=== PATIENT | female | born 1955 | race American Indian/Alaskan Native ===

== ENCOUNTER → 2016-08-04 | Outpatient (CLI) | payer MEDICARE ==
--- NOTE | 2016-08-04 07:40 | XR ---
EXAMINATION TYPE: XR chest 2V DATE OF EXAM: 08/04/2016 7:34 AM COMPARISON: 08/02/2015 HISTORY: 61-year-old female follow-up breast cancer TECHNIQUE: Frontal and lateral views FINDINGS: Redemonstrated surgical clips at the left breast. The cardiomediastinal silhouette, aorta, and pulmon felip[place] vasculature are within normal limits. Mild interstitial prominence unchanged likely chronic. Othe rwise, lungs and pleural spaces are clear. IMPRESSION: Stable exam without acute cardiopulmonary process.
--- NOTE | 2016-08-05 09:04 | MM ---
Reason for exam: screening (asymptomatic). Last mammogram was performed 1 year ago. History: Patient is postmenopausal, has history of breast cancer at age 52, had previous chest radiation therapy at age 52, and had first child at age 29. Malignant US left guided mammotome of the left breast, July 30, 2007. Lumpectomy of the left breast, 2007. Chemotherapy, 2007. Radiation therapy of the left breast, 2007. Took antineoplastic for 5 years beginning at age 52. Taking other hormone for 6 years beginning at age 52. Physical Findings: A clinical breast exam by your physician is recommended on an annual basis and results should be correlated with mammographic findings. MG Screening Mammo w CAD Bilateral CC and MLO view(s) were taken. Prior study comparison: August 02, 2015, bilateral MG 3d diag mammo w/cad [place]. July 12, 2014, bilateral MG diagnostic mammo w CAD [place]. The breast tissue is heterogeneously dense. This may lower the sensitivity of mammography. Finding #1: Architectural distortion in the left breast. Finding #2: There are typically benign calcifications in both breasts. No significant changes in finding since August 02, 2015 and July 12, 2014. ASSESSMENT: Benign, BI-RAD 2 RECOMMENDATION: Routine screening mammogram of both breasts in 1 year.
== END | disposition home or self-care (01) ==
LOC: RADMAMWWP 07:07
PROVIDERS: ATTEND Internal Medicine Hematology & Oncology
DX: Z12.31 Encounter for screening mammogram for malignant neoplasm of breast (principal); C50.412 Malignant neoplasm of upper-outer quadrant of left female breast; E78.5 Hyperlipidemia, unspecified; M81.8 Other osteoporosis without current pathological fracture; Z80.3 Family history of malignant neoplasm of breast; Z17.0 Estrogen receptor positive status [ER+]
CPT/HCPCS: 71020; G0202

== ENCOUNTER → 2016-09-23 | Outpatient (CLI) | payer MEDICARE ==
--- NOTE | 2016-09-23 16:52 | WWHP ---
CHIEF COMPLAINT: The patient is here for her routine gynecologic exam. HPI: This is a 61-year-old, G2, P2 with an LMP of 1998. The patient is without gynecologic complaints. She had a mammogram on 08/04/2016, which was benign. PAST MEDICAL HISTORY: Left breast cancer diagnosed in 2007 and she is status post lumpectomy and radiation and chemotherapy. Also history of elevated cholesterol and osteoporosis. She did use Prolia for about 1-1/2 years and that was discontinued. MEDICATIONS: 1. Simvastatin 25 mg daily. 2. Vitamin D 2000 units daily. 3. Calcium 600 mg b.i.d. 4. Multivitamin daily. ALLERGIES: No known drug allergies. PAST SURGICAL HISTORY: Left breast lumpectomy in 2007. Right breast reconstructive surgery 2015, colonoscopy in 2011. She has had several colonoscopies in the past. 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 SOCIAL HISTORY: She denies tobacco and drug use and has about 0 to 1 alcoholic drink per week. She has been since 1983 and does not work outside the home. REVIEW OF SYSTEMS: Weight has been stable. She denies respiratory, cardiac, or GI problems. PHYSICAL EXAM: Blood pressure 114/80. Height 5 feet 2 inches. Weight 156 pounds. Temperature 97.6, pulse 71. This a well-developed, well-nourished female who is alert and oriented x3 in no acute distress. HEENT is within normal limits. NECK: Supple without mass or thyromegaly. CHEST AND LUNGS: Clear to auscultation. HEART: Regular rate and rhythm. Breasts reveal inverted area of the left breast that in the lateral aspect of the left breast consistent with her previous lumpectomy. The nipple has a linear inversion which she states has been that way since her surgery and radiation. The right breast is consistent with a previous right breast reconstruction, there are no palpable breast masses or discharge noted. Axillary exam is negative adenopathy. BACK: Negative for CVA tenderness. ABDOMEN: Soft, nontender, without palpable masses. PELVIC EXAM: External genitalia reveals mild to moderate atrophy without lesions. Cervix and vagina reveal mild atrophy without lesions. There is no evidence of prolapse. The uterus is midposition, nongravid size and nontender. There are no palpable adnexal masses or tenderness. Rectovaginal exam is negative for mass or tenderness and is negative for occult blood. EXTREMITIES: Nontender. IMPRESSION: 1. A 61-year-old menopausal female with normal gynecologic exam. 2. History of left breast cancer with no evidence of recurrence. 3. History of osteoporosis, status post Prolia use for 1-1/2 years and this was discontinued for an unknown reason. PLAN: 1. Pap smear was performed. 2. Self breast examination was discussed. 3. Mammograms will be done through Dr. Arevalo as she has done in the past. 4. Osteoporosis management was discussed. We will plan on repeating a bone density since it has been more than a year since her last one. We will consider medications such as Prolia after reviewing the upcoming bone density test. 5. She will return in one year.
== END | disposition home or self-care (01) ==
LOC: WWCWWP 07:59
PROVIDERS: ATTEND Obstetrics & Gynecology

== ENCOUNTER → 2017-09-09 | Outpatient (CLI) | payer MEDICARE ==
--- NOTE | 2017-09-09 14:31 | BD ---
EXAMINATION TYPE: MG DEXA axial skeleton. DATE OF EXAM: 09/09/2017 COMPARISON: NONE CLINICAL HISTORY: Height: Weight: FRAX RISK QUESTIONS: Alcohol (3 or more units per day): NO Family History (Parent hip fracture): NO Glucocorticoids (More than 3mos): NO (Ex: prednisone, prednisolone, methylprednisolone, dexamethasone, and hydrocortisone). History of Fracture in Adulthood: NO Secondary Osteoporosis: 1. Type 1 Diabetes: NO 2. Hyperthyroidism: NO 3. Menopause before 45: NO 4. Malnutrition: NO 5. Chronic liver disease: NO Rheumatoid Arthritis: NO Current Tobacco Use: NO RISK FACTORS HISTORY OF: Active: YES Postmenopausal woman: AGE 45 MEDICATIONS: Additional Medications: CALCIUM,VIT D Additional History: WAS ON CHOLESTEROL MEDS 4-5 YRS /OFF 6 MONTHS EXAM MEASUREMENTS: Bone mineral densitometry was performed using the [employer] System. Bone mineral density as measured about the Lumbar spine is: ----- L1-L4(G/cm2): 0.927 T Score Values are as follows: ----- L2: -3.6 ----- L3: -2.6 ----- L4: 0.0 ----- L1-L4: -2.1 Bone mineral density has: DECREASED -3.2 % since study of: 2015 Bone mineral density about the R hip (g/cm2): 0.967 Bone mineral density about the L hip (g/cm2): 1.000 T Score values are as follows: -----R Neck: -0.5 -----L Neck: -0.3 -----R Total: -0.6 -----L Total: -0.8 Bone mineral density has: 0 CHANGE % since study of: 2015 IMPRESSION: Osteoporosis (T Score less than -2.5). There is increased fracture risk and therapy is usually indicated based on age. Re-Screen 1-2 years. NOTE: T-SCORE=SD OF THE YOUNG ADULT MEAN.
--- NOTE | 2017-09-10 11:14 | MM ---
Reason for exam: screening (asymptomatic). Last mammogram was performed 1 year and 1 month ago. History: Patient is postmenopausal, has history of breast cancer at age 52, had previous chest radiation therapy at age 52, and had first child at age 29. Malignant US left guided mammotome of the left breast, July 30, 2007. Lumpectomy of the left breast, 2007. Chemotherapy, 2007. Radiation therapy of the left breast, 2007. Took antineoplastic for 5 years beginning at age 52. Taking other hormone for 6 years beginning at age 52. Physical Findings: A clinical breast exam by your physician is recommended on an annual basis and results should be correlated with mammographic findings. MG 3D Screening Mammo W/Cad Bilateral CC and MLO view(s) were taken. Prior study comparison: August 04, 2016, bilateral MG screening mammo w CAD. August 02, 2015, bilateral MG 3d diag mammo w/cad [place]. July 12, 2014, bilateral MG diagnostic mammo w CAD [place]. The breast tissue is heterogeneously dense. This may lower the sensitivity of mammography. No significant changes when compared with prior studies. ASSESSMENT: Benign, BI-RAD 2 RECOMMENDATION: Routine screening mammogram of both breasts in 1 year.
== END ==
LOC: RADMAMWWP 09:08
PROVIDERS: ATTEND Internal Medicine Hematology & Oncology
DX: C50.412 Malignant neoplasm of upper-outer quadrant of left female breast (principal); M81.0 Age-related osteoporosis without current pathological fracture
CPT/HCPCS: 77063; 77067; 77080

== ENCOUNTER → 2017-10-28 | Outpatient (CLI) | payer MEDICARE ==
[2017-10-28 09:30] VITALS: BP 114/72; TEMP 97.4; BMI 29.8
--- NOTE | 2017-10-28 10:22 | P.HPOB ---
History of Present Illness H&P Date: 10/28/17 Chief Complaint: The patient is here for her routine gynecologic exam. This is a 62-year-old with an LMP of 1998. The patient is without gynecologic complaints. Patient had her mammogram and bone density test done last month. Review of Systems The patient has gained 7 pounds over the last year. She denies respiratory, cardiac, or G.I. problems. Past Medical History Past Medical History: Cancer (Left breast cancer in 2007 she is status post lumpectomy, radiation and chemotherapy.), Hyperlipidemia, Sleep Apnea/CPAP/BIPAP Additional Past Medical History / Comment(s): History of osteoporosis. She used Fosamax for 5 years and Prolia for 1 1/2 years. History of Any Multi-Drug Resistant Organisms: None Reported Past Surgical History: Breast Surgery Additional Past Surgical History / Comment(s): lumpectomy lt breast, reconstructive surgery rt breast. Colonoscopy 2011 and 2016. Past Anesthesia/Blood Transfusion Reactions: No Reported Reaction Past Psychological History: No Psychological Hx Reported Smoking Status: Never smoker Past Alcohol Use History: Occasional (1 per month) Past Drug Use History: None Reported Additional History: She has been since 1983 and does not work outside the home. - Past Family History Mother Family Medical History: Hyperlipidemia Additional Family Medical History / Comment(s): 2 cousins had colon cancer. Medications and Allergies Home Medications Medication Instructions Recorded Confirmed Type Calcium Carbonate [Calcium] 1,200 mg PO DAILY 09/24/16 10/28/17 History Cholecalciferol [Vitamin D3] 1,000 unit PO BID 09/24/16 10/28/17 History Simvastatin [Zocor] 0.25 mg PO HS 09/24/16 10/28/17 History Allergies Allergy/AdvReac Type Severity Reaction Status Date / Time No Known Allergies Allergy Verified 10/28/17 09:30 Exam - Vital Signs Vital signs: Vital Signs Temp BP 10/28/17 09:22 97.4 F L 114/72 Intake and Output 10/27/17 10/28/17 10/28/17 22:59 06:59 14:59 Other: Weight 73.936 kg Height 5'2", BMI 29.8. This is a well-developed well-nourished female who is alert and oriented times 3 in no acute distress. HEENT: Within normal limits. NECK: Supple without mass or thyromegaly. CHEST AND LUNGS: Clear to auscultation. HEART: Regular rate and rhythm. BREASTS: Are without mass or discharge. The left breast is consistent with previous lumpectomy with a inverted area at the lateral aspect of the breast. The right breast is consistent with previous reconstruction. AXILLARY EXAM: Negative for adenopathy. BACK: Negative for CVA tenderness. ABDOMEN: Soft, nontender, without palpable masses. PELVIC EXAM: Normal external genitalia with mild to moderate atrophy. Cervix and vagina appear normal of mild atrophy. There is no unusual discharge. There is no evidence of prolapse. The uterus is midposition, nongravid size and nontender. There are no palpable adnexal masses or tenderness. RECTAL EXAM: to vaginal exam is negative for mass or tenderness and is negative for occult blood. EXTREMITIES: Nontender. IMPRESSION: 1. 62-year-old menopausal female with normal gynecologic exam. 2. History of left breast cancer with no evidence of recurrence. 3. History of osteoporosis. She is status post 5 years use of Fosamax and probably a for one and half years in the past. PLAN: 1. Pap smear was deferred since she had a normal one last year. 2. Self breast awareness was discussed. 3. Mammogram was done in 09/09/2017 and was benign. She will repeat this in one year. 4. Osteoporosis management was discussed. Her bone density from 09/09/2017 was reviewed. Findings were relatively stable with focal osteoporosis in L2 and L3. Because of her five-year use of bisphosphonates we will continue without medications at this time. I have stressed the importance of adequate calcium, vitamin D and regular exercise. We will repeat the bone density in 2 years. 5. She will return in one year.
== END | disposition home or self-care (01) ==
LOC: WWCWWP 09:08
PROVIDERS: ATTEND Obstetrics & Gynecology
DX: Z53.9 Procedure and treatment not carried out, unspecified reason (principal)

== ENCOUNTER → 2018-11-02 | Outpatient (CLI) | payer MEDICARE ==
--- NOTE | 2018-11-03 12:11 | MM ---
Reason for exam: screening (asymptomatic). Last mammogram was performed 1 year and 2 months ago. History: Patient is postmenopausal, has history of breast cancer at age 52, had previous chest radiation therapy at age 52, and had first child at age 29. Malignant US left guided mammotome of the left breast, July 30, 2007. Lumpectomy of the left breast, 2007. Chemotherapy, 2007. Radiation therapy of the left breast, 2007. Took antineoplastic for 5 years beginning at age 52. Taking other hormone for 6 years beginning at age 52. Physical Findings: A clinical breast exam by your physician is recommended on an annual basis and results should be correlated with mammographic findings. MG 3D Screening Mammo W/Cad Bilateral CC and MLO view(s) were taken. Prior study comparison: September 09, 2017, bilateral MG 3d screening mammo w/cad. August 04, 2016, bilateral MG screening mammo w CAD. The breast tissue is heterogeneously dense. This may lower the sensitivity of mammography. Finding: Architectural distortion in the left breast consistent with known lumpectomy changes. There is a chronic nodularity in the right breast. There is no discrete abnormality. ASSESSMENT: Benign, BI-RAD 2 RECOMMENDATION: Follow-up diagnostic mammogram of both breasts in 1 year.
== END | disposition home or self-care (01) ==
LOC: RADMAMWWP 07:21
PROVIDERS: ATTEND Internal Medicine Hematology & Oncology
DX: Z12.31 Encounter for screening mammogram for malignant neoplasm of breast (principal)
CPT/HCPCS: 77063; 77067

== ENCOUNTER → 2018-12-22 | Outpatient (CLI) | payer MEDICARE ==
[2018-12-22 08:01] VITALS: BP 109/74; PULSE 71; RESP 18; TEMP 98; BMI 29.8
--- NOTE | 2018-12-22 08:56 | P.HPOB ---
History of Present Illness H&P Date: 12/22/18 Chief Complaint: The patient is here for her routine gynecological exam. This is a 63-year-old with an LMP of 1998. The patient is complaining of vaginal dryness not associated with sexual activity. She states the vagina can feel dry at times and this can be uncomfortable. She is otherwise without complaints and denies any postmenopausal bleeding. Review of Systems Weight has been stable. She denies respiratory, cardiac and G.I. problems. She denies maltreatment or problems with falling. : she denies any significant problems with urinary leakage. Past Medical History Past Medical History: Cancer, Hyperlipidemia, Sleep Apnea/CPAP/BIPAP Additional Past Medical History / Comment(s): Left breast cancer status post lumpectomy, chemotherapy, and radiation therapy in 2007. History of osteoporosis. She used Fosamax for 5 years and Prolia for 1 1/2 years. 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 History of Any Multi-Drug Resistant Organisms: None Reported Past Surgical History: Breast Surgery Additional Past Surgical History / Comment(s): lumpectomy lt breast, reconstructive surgery rt breast. Colonoscopy 2017(multiple previous, next after 5 yrs). Past Anesthesia/Blood Transfusion Reactions: No Reported Reaction Past Psychological History: No Psychological Hx Reported Smoking Status: Never smoker Past Alcohol Use History: Occasional (One or 2 per month) Past Drug Use History: None Reported Additional History: She has been since 1983 and is sexually active. She does not work outside the home. - Past Family History Mother Family Medical History: Hyperlipidemia Additional Family Medical History / Comment(s): 2 cousins had colon cancer. Father Family Medical History: Hyperlipidemia Medications and Allergies Home Medications Medication Instructions Recorded Confirmed Type Cholecalciferol [Vitamin D3] 1,000 unit PO BID 09/24/16 12/22/18 History Simvastatin [Zocor] 0.25 mg PO HS 09/24/16 12/22/18 History Allergies Allergy/AdvReac Type Severity Reaction Status Date / Time No Known Allergies Allergy Verified 12/22/18 08:01 Exam Vital Signs Temp Pulse Resp BP Pulse Ox 12/22/18 07:54 98.0 F 71 18 109/74 95 Intake and Output 12/21/18 12/22/18 12/22/18 22:59 06:59 14:59 Other: Weight 73.936 kg Height 5'2", weight 163 pounds, BMI 29.8. This is a well-developed well-nourished female who is alert and oriented times 3 in no acute distress. HEENT: Within normal limits. NECK: Supple without mass or thyromegaly. CHEST AND LUNGS: Clear to auscultation. HEART: Regular rate and rhythm. BREASTS: Are without mass or discharge. The left breast has a puckered area near the 3 o'clock position of the areola with an inverted left nipple consistent with her previous lumpectomy. The right breast is consistent with breast reconstruction. AXILLARY EXAM: Negative for adenopathy. BACK: Negative for CVA tenderness. ABDOMEN: Soft, nontender, without palpable masses. PELVIC EXAM: Normal external genitalia with mild atrophy. Cervix and vagina appear normal with mild atrophy. There is no unusual discharge. There is no evidence of prolapse. The uterus is midposition, nongravid size and nontender. There are no palpable adnexal masses or tenderness. RECTAL EXAM: rectovaginal exam is negative for mass or tenderness and is negative for occult blood. EXTREMITIES: Nontender. IMPRESSION: 1. 63-year-old menopausal female with normal gynecologic exam. 2. Subjective feeling of vaginal dryness secondary to atrophy. 3. History of left breast cancer with no evidence of recurrence. 4. History of osteopenia status post 5 years of Fosamax and one half years of pearly in the past. PLAN: 1. Pap smear was performed. If this is negative, we will consider discontinuing Pap smears since she has had no history of cervical problems, she has been adequately screened, and she will be in greater than 63 years of age. 2. Self breast awareness was discussed with the patient. 3. Mammogram was done on 11/02/2018 and was benign. She will continue to do these yearly. 4. Osteoporosis management was discussed. I have stressed the importance of adequate calcium, vitamin D and regular exercise. Recommended amounts of calcium and vitamin D were also discussed. Because she is completed 5 years use of Fosamax and one and a half years of Prolia, we will continue to go without prescription medication. We will plan on repeating the bone density test in 2020 since her last one was done on 09/09/2017. If this remains fairly stable, we will continue without prescription medication. 5. She does get flu shots in the fall. 6. Because of her history of breast cancer, she is not a candidate for vaginal estrogen use. I have recommended that she try a vaginal moisturizer. I have given her 2 names of vaginal moisturizers that are available [id number]. She will use one of these as directed. 7.She was advised to return in one year for her annual well woman exam.
== END | disposition home or self-care (01) ==
LOC: WWCWWP 07:45
PROVIDERS: ATTEND Obstetrics & Gynecology
DX: Z53.9 Procedure and treatment not carried out, unspecified reason (principal)

== ENCOUNTER → 2019-01-20 | Outpatient (CLI) | payer MEDICARE ==
--- NOTE | 2019-01-20 12:56 | CONS ---
CONSULTATION DATE OF SERVICE: 01/20/2019 A 64-year-old lady who has been re-evaluated in the [facility] for obstructive sleep apnea-hypopnea syndrome. HISTORY OF PRESENT ILLNESS/SLEEP-WAKE EVALUATION: Patient had been diagnosed with obstructive sleep apnea in 2011. She continues to use her CPAP equipment but developed dryness in the mouth while using machine. Because of that, patient was not able to use machine for a while. His sleep schedule from 10 p.m. to 7 a.m. Sometimes she has problem with falling asleep. No TV in bedroom. She sleeps on the stomach position. She wakes up from sleep 2 times with nocturia and loud snoring. During the day, she has problems with memory, worry about her sleep. [place] Sleepiness Scale is 7. PAST MEDICAL HISTORY: Positive for left breast CA and hyperlipidemia. PAST SURGICAL HISTORY: Lumpectomy from the left breast and following radiation therapy and chemotherapy. MEDICATIONS: Simvastatin, vitamin D. REVIEW OF SYSTEMS: Loud snoring, multiple awakenings from sleep. FAMILY HISTORY: Diabetes mellitus, arthritis, heart problems, hypertension. SOCIAL HISTORY: Negative for smoking. Alcohol consumption occasional. PHYSICAL EXAM: A 64-year-old lady without distress. BP 117/61, HR 67, RR 14, height 5.2, weight 163.8, temperature 98.2, oxygen saturation at room air 95%. OROPHARYNX: Extremely low soft palate, Mallampati 4. Neck Supple, no JVD. Thyroid is not palpable. LUNGS Clear to percussion and to auscultation. Good air exchange. No wheezing or rhonchi. HEART S1, S2 regular. No murmurs, gallops, or rubs. ABDOMEN Soft and nontender. Bowel sounds are present. No organomegaly appreciated. EXTREMITIES No clubbing or cyanosis. 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 Cranial nerves 2 to 7 intact. There is no fasciculation or atrophy. noted. No focal deficits observed. IMPRESSION: 1. Loud snoring, awakenings from sleep with nocturia, extremely low position of soft palate, obstructive sleep apnea-hypopnea syndrome. 2. Overweight, close to obesity, body mass index 29.9. 3. Hyperlipidemia. 4. History of breast carcinoma, status post lumpectomy, radiation therapy and chemotherapy. 5. History of obstructive sleep apnea diagnosed in 2011, but patient was not able to use CPAP therapy for more than one year. PLAN: 1. Polysomnography for evaluation of patient's breathing during sleep. 2. CPAP/BiPAP titration if sleep study confirms obstructive sleep apnea-hypopnea syndrome. 3. Preferable position during sleep on the side. 4. No driving if patient feels any sleepiness. 5. I will see patient for follow up visit to explain results of testing and following plan. Thank you very much for referring this patient for consultation. Sincerely, Bryan Shah MD, PhD, FAASM Diplomat of [employer] [facility] [place] MMODL / IJN: [id number] /
== END | disposition home or self-care (01) ==
LOC: SLEEP 11:24
PROVIDERS: ATTEND Internal Medicine
DX: G47.33 Obstructive sleep apnea (adult) (pediatric) (principal); E66.3 Overweight; E78.5 Hyperlipidemia, unspecified; Z68.29 Body mass index [BMI] 29.0-29.9, adult; Z85.3 Personal history of malignant neoplasm of breast; Z92.21 Personal history of antineoplastic chemotherapy; Z92.3 Personal history of irradiation; Z98.890 Other specified postprocedural states
CPT/HCPCS: 99211

== ENCOUNTER → 2019-08-18 | Outpatient (CLI) | payer MEDICARE ==
--- NOTE | 2019-08-18 11:51 | PN ---
PROGRESS NOTE DATE OF SERVICE: 08/18/2019 A 64-year-old lady who has been followed in the [facility] for treatment of obstructive sleep apnea-hypopnea syndrome. Several months ago, patient had a home sleep apnea test which showed apnea-hypopnea index 16.5 with oxygen desaturation to 80%. After that, patient had CPAP titration and subsequently received a CPAP unit. I discussed results of sleep studies with patient in detail. Patient is able to use her CPAP equipment practically every night. She only mentioned that she sometimes opens her mouth and that may move her mask on the side. She is using full-face, under the nose Dream Wear mask. She feels better while she is using CPAP. Sleeps better and feels better during the day. [place] Sleepiness Scale today is 6. I checked CPAP unit, range of the pressure 5-15 with average pressure 13.6 cm of water. Usage is 27/30 nights, 26/30 nights more than 4 hours with average usage is 6.4 hours per night. Leak is 60 L/minute which is borderline. Apnea-hypopnea index reading 3.8, which is in normal range. MEDICATIONS: Simvastatin, vitamin D. PHYSICAL EXAM: Patient in no distress, BP 114/70, HR 66, RR 14, weight 159.8, temperature 97.9, O2 saturation at room air 97%. OROPHARYNX: Extremely low position of soft palate. Mallampati 4. NECK: Supple, no JVD. Thyroid is not palpable. LUNGS: Clear to percussion and to auscultation. Good air exchange. No wheezing or rhonchi. HEART: S1, S2 regular. No murmurs, gallops, or rubs. ABDOMEN: Soft and nontender. Bowel sounds are present. No organomegaly appreciated. EXTREMITIES: No clubbing or cyanosis. CHANGE CONTROL ANALYST: Awake, alert, and oriented X3. Cranial nerves 2 to 7 intact. There is no fasciculation or atrophy. noted. No focal deficits observed. IMPRESSION: 1. Moderate obstructive sleep apnea-hypopnea syndrome on full control with CPAP. Patient demonstrated great compliance with treatment, benefitting from treatment. 2. Hyperlipidemia. 3. History of breast CA, status post lumpectomy and radiation therapy. PLAN: 1. Patient will continue to use CPAP equipment every night for the whole night. 2. Watching weight. 3. Prescription for chin strap. 4. I will maintain all necessary prescriptions for CPAP supplies including mask, tube, filters. Thank you very much for allowing me to participate in management of your patient. Sincerely, Bryan Shah MD, PhD, FAASM Diplomat of [place] [employer] [place] [employer] Forestry Support Specialist [facility] [place] MMODL / [place]: [id number] /
== END | disposition home or self-care (01) ==
LOC: SLEEP 09:55
PROVIDERS: ATTEND Internal Medicine
DX: G47.33 Obstructive sleep apnea (adult) (pediatric) (principal); E78.5 Hyperlipidemia, unspecified; Z85.3 Personal history of malignant neoplasm of breast; Z90.10 Acquired absence of unspecified breast and nipple; Z51.0 Encounter for antineoplastic radiation therapy; Z79.899 Other long term (current) drug therapy

== ENCOUNTER → 2020-01-05 | Outpatient (CLI) | payer MEDICARE ==
--- NOTE | 2020-01-05 11:05 | MM ---
Reason for exam: additional evaluation requested from prior study. Last mammogram was performed 1 year and 2 months ago. History: Patient is postmenopausal, has history of breast cancer at age 52, had previous chest radiation therapy at age 52, and had first child at age 29. Malignant US left guided mammotome of the left breast, July 30, 2007. Lumpectomy of the left breast, 2007. Chemotherapy, 2007. Radiation therapy of the left breast, 2007. Took antineoplastic for 5 years beginning at age 52. Taking other hormone for 6 years beginning at age 52. Physical Findings: Nurse did not find any significant physical abnormalities on exam. MG 3D Diag Mammo W/Cad [place] Bilateral CC and MLO view(s) were taken. Prior study comparison: November 02, 2018, bilateral MG 3d screening mammo w/cad. September 09, 2017, bilateral MG 3d screening mammo w/cad. The breast tissue is heterogeneously dense. This may lower the sensitivity of mammography. There is chronic nodularity in the right breast. Post surgical and post therapy changes left breast. No significant new findings when compared with previous films. These results were verbally communicated with the patient and result sheet given to the patient on 01/05/20. ASSESSMENT: Benign, BI-RAD 2 RECOMMENDATION: Follow-up diagnostic mammogram of both breasts in 1 year.
--- NOTE | 2020-01-05 17:20 | XR ---
EXAMINATION TYPE: XR chest 2V DATE OF EXAM: 01/05/2020 COMPARISON: 08/04/2016 HISTORY: Shortness of breath TECHNIQUE: Frontal and lateral views of the chest are obtained. FINDINGS: Scattered senescent parenchymal changes noted. Hyperinflation compatible with COPD. No evidence for infiltrate. No evidence for atelectasis. Heart size is stable. Mediastinal structures are stable and grossly unremarkable. No evidence for hilar prominence. Degenerative changes dorsal spine. IMPRESSION: 1. No evidence for acute pulmonary disease.
== END | disposition home or self-care (01) ==
LOC: RADMAMWWP 10:02
PROVIDERS: ATTEND Internal Medicine Hematology & Oncology
DX: C50.412 Malignant neoplasm of upper-outer quadrant of left female breast (principal); E78.5 Hyperlipidemia, unspecified; M81.8 Other osteoporosis without current pathological fracture; Z17.0 Estrogen receptor positive status [ER+]
CPT/HCPCS: 71046; 77066; G0279; 77062

== ENCOUNTER → 2020-01-10 | Outpatient (CLI) | payer MEDICARE ==
[2020-01-10 10:12] VITALS: BP 127/75; PULSE 79; RESP 18; TEMP 98.4
--- NOTE | 2020-01-10 11:03 | P.HPOB ---
History of Present Illness H&P Date: 01/10/20 Chief Complaint: The patient is here for her routine gynecologic exam. This is a 65-year-old with an LMP of 1998. The patient is without gynecologic complaints. The patient denies any postmenopausal bleeding. The patient has a history of osteoporosis and is status post 5 years use of Fosamax and Prolene use for 1-1/2 years. Review of Systems She has lost about 5 pounds over the past year. She denies respiratory, cardiac and G.I. problems. She denies maltreatment or problems with falling. : she denies any significant problems with urinary leakage. Past Medical History Past Medical History: Cancer, Hyperlipidemia, Sleep Apnea/CPAP/BIPAP Additional Past Medical History / Comment(s): Left breast cancer status post lumpectomy, chemotherapy, and radiation therapy in 2007. History of osteoporosis. She used Fosamax for 5 years and Prolia for 1 1/2 years. 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 History of Any Multi-Drug Resistant Organisms: None Reported Past Surgical History: Breast Surgery Additional Past Surgical History / Comment(s): lumpectomy lt breast, reconstructive surgery rt breast. Colonoscopy 2017(multiple previous, next after 5 yrs). Past Anesthesia/Blood Transfusion Reactions: No Reported Reaction Past Psychological History: No Psychological Hx Reported Smoking Status: Never smoker Past Alcohol Use History: Occasional (2 per week) Past Drug Use History: None Reported Additional History: She has been since 1983 and is sexually active. She does not work outside of the home. - Past Family History Mother Family Medical History: Hyperlipidemia Additional Family Medical History / Comment(s): 2 cousins had colon cancer. Father Family Medical History: Hyperlipidemia Medications and Allergies Home Medications Medication Instructions Recorded Confirmed Type Cholecalciferol [Vitamin D3] 1,000 unit PO BID 09/24/16 01/10/20 History Simvastatin [Zocor] 0.25 mg PO HS 09/24/16 01/10/20 History Allergies Allergy/AdvReac Type Severity Reaction Status Date / Time No Known Allergies Allergy Verified 01/10/20 10:07 Exam Vital Signs Temp Pulse Resp BP Pulse Ox 01/10/20 10:08 98.4 F 79 18 127/75 99 Intake and Output 07/06/20 07/07/20 07/07/20 22:59 06:59 14:59 Other: Weight 71.668 kg Height 5 feet 2-1/2 inches, weight 158 pounds, BMI 28.4. This is a well-developed well-nourished female who is alert and oriented times 3 in no acute distress. HEENT: Within normal limits. NECK: Supple without mass or thyromegaly. CHEST AND LUNGS: Clear to auscultation. HEART: Regular rate and rhythm. BREASTS: Are without mass or discharge. The left breast has a puckered area near the 3 o'clock position involving the areola which is consistent with her previous lumpectomy and is unchanged from her previous exam. AXILLARY EXAM: Negative for adenopathy. BACK: Negative for CVA tenderness. ABDOMEN: Soft, nontender, without palpable masses. PELVIC EXAM: Normal external genitalia with mild atrophy. Cervix and vagina appear normal mild atrophy. There is no unusual discharge. There is no evidence of prolapse. The uterus is midposition, nongravid size and nontender. There are no palpable adnexal masses or tenderness. RECTAL EXAM: Rectovaginal exam is negative for mass or tenderness and is negative for occult blood. EXTREMITIES: Nontender. IMPRESSION: 1. 65-year-old menopausal female with normal gynecologic exam. 2. History of left breast cancer status post lumpectomy, chemotherapy and radiation therapy in 2007 with no evidence of recurrence. 3. History of osteoporosis status post 5 years use of Fosamax and 1-1/2 years use of Prolia. PLAN: 1. Pap smears have been discontinued based on her age and history. 2. Self breast awareness was discussed with the patient. 3. Diagnostic mammogram was done on 01/05/2020 and this was benign. She'll continue to do these yearly. 4. Osteoporosis management was discussed. I have stressed the importance of adequate calcium, vitamin D and regular exercise. Recommended amounts of calcium and vitamin D were also discussed. I have recommended repeating the bone density test since her last one was on 09/09/2017. She states she would like to do this next year at her next well woman examination. 5. She did receive her flu shot last fall. 6. She was advised to return in one year for her annual well woman exam.
== END | disposition home or self-care (01) ==
LOC: WWCWWP 09:27
PROVIDERS: ATTEND Obstetrics & Gynecology
DX: Z53.9 Procedure and treatment not carried out, unspecified reason (principal)

== ENCOUNTER → 2020-05-21 | Outpatient (CLI) | payer MEDICARE ==
[2020-05-21 16:06] LABS: Chol/HDL Ratio 2.64; LDL Cholesterol,Calculated 100.8 mg/dL (0.0-131.0); VLDL Calculation 17.2 mg/dL (5.00-40.00)
== END | disposition home or self-care (01) ==
LOC: LABWHC1 08:27
PROVIDERS: ATTEND Family Medicine
DX: E78.00 Pure hypercholesterolemia, unspecified (principal); M81.0 Age-related osteoporosis without current pathological fracture
CPT/HCPCS: 36415; 80061; 82306; 84450; 84460

== ENCOUNTER → 2020-12-07 | Day surgery (SDC) | payer MEDICARE ==
[2020-11-05 10:42] VITALS: BMI 30.2
[~2020-12-07] MED LIST: LACTATED RINGERS 1,000 ML IV SCH; LIDOCAINE 1% (10MG/ML) FOR IV START INTRADERMA PRN; LIDOCAINE 1% INJ 10MG/ML (20 ML MDV) ONE; PROPOFOL 10 MG/ML 20 ML VIAL IV ONE
[2020-12-07 09:45] VITALS: TEMP 98.6
--- NOTE | 2020-12-07 10:52 | P.PCN ---
Date of Procedure: 12/07/20 Procedure(s) Performed: BRIEF HISTORY: Patient is a 65-year-old pleasant 8 female scheduled for an elective colonoscopy as a part of evaluation of rectal bleeding and rectal pain for the last few weeks duration PROCEDURE PERFORMED: Colonoscopy with snare polypectomy. PREOPERATIVE DIAGNOSIS: Rectal bleeding and rectal pain. IV sedation per Anesthesia. PROCEDURE: After informed consent was obtained, the patient, was brought into the endoscopy unit. IV sedation was administered by Anesthesia under continuous monitoring. Digital rectal examination was normal. Initially the Olympus CF-160 flexible video colonoscope was then inserted in the rectum, gradually advanced into the cecum without any difficulty. Careful examination was performed as the scope was gradually being withdrawn. Ileocecal valve and the appendiceal orifice were visualized and appeared normal. Prep was excellent. Mucosa of the cecum, ascending colon, transverse colon, descending colon, sigmoid colon, and rectum appeared normal. Retroflexion was performed in the rectum and no lesions were seen. The patient tolerated the procedure well. IMPRESSION: 3 mm and 5 limited hepatic flexure polyp status post polypectomy 1 cm pedunculated rectosigmoid polyp status post polypectomy Scattered sigmoid diverticulosis. RECOMMENDATIONS: Findings of this examination were discussed with the patient as well as a family. She was advised to follow with the biopsy results. If the biopsy shows an adenoma she can have a repeat colonoscopy in 3 years.
[2020-12-07 11:12] VITALS: BP 118/59; PULSE 60; RESP 17
== END ==
LOC: ORWHC2ENDO 09:22
PROVIDERS: ATTEND Internal Medicine Gastroenterology
DX: K62.89 Other specified diseases of anus and rectum (principal); K57.90 Diverticulosis of intestine, part unspecified, without perforation or abscess without bleeding; E78.5 Hyperlipidemia, unspecified; Z79.899 Other long term (current) drug therapy; D12.7 Benign neoplasm of rectosigmoid junction; D12.3 Benign neoplasm of transverse colon
CPT/HCPCS: 88305; 45385; J2001; J2704

== ENCOUNTER → 2021-02-15 | Outpatient (CLI) | payer MEDICARE ==
--- NOTE | 2021-02-18 07:50 | MM ---
Reason for exam: additional evaluation requested from prior study. Last mammogram was performed 1 year and 1 month ago. History: Patient is postmenopausal, has history of breast cancer at age 52, had previous chest radiation therapy at age 52, and had first child at age 29. Breast lift of the right breast, 2010. Malignant US left guided mammotome of the left breast, July 30, 2007. Lumpectomy of the left breast, 2007. Chemotherapy, 2007. Radiation therapy of the left breast, 2007. Took antineoplastic for 5 years beginning at age 52. Taking other hormone for 6 years beginning at age 52. Physical Findings: Nurse did not find any significant physical abnormalities on exam. MG 3D Diag Mammo W/Cad [place] Bilateral CC and MLO view(s) were taken. Prior study comparison: January 05, 2020, bilateral MG 3d diag mammo w/cad [place]. November 02, 2018, bilateral MG 3d screening mammo w/cad. September 09, 2017, bilateral MG 3d screening mammo w/cad. August 04, 2016, bilateral MG screening mammo w CAD. The breast tissue is heterogeneously dense. This may lower the sensitivity of mammography. There is chronic nodularity in the right breast. Left lumpectomy changes, stable. No significant new findings when compared with previous films. These results were verbally communicated with the patient and result sheet given to the patient on 02/15/21. ASSESSMENT: Benign, BI-RAD 2 RECOMMENDATION: Routine screening mammogram of both breasts in 1 year.
== END | disposition home or self-care (01) ==
LOC: RADMAMWWP 14:26
PROVIDERS: ATTEND Internal Medicine Hematology & Oncology
DX: R92.2 Inconclusive mammogram (principal); Z78.0 Asymptomatic menopausal state; Z80.3 Family history of malignant neoplasm of breast
CPT/HCPCS: 77066; G0279; 77062

== ENCOUNTER → 2022-03-20 | Outpatient (CLI) | payer MEDICARE ==
--- NOTE | 2022-03-20 15:38 | BD ---
EXAMINATION TYPE: Axial Bone Density DATE OF EXAM: 03/20/2022 COMPARISON: DEXA bone scan 2017 CLINICAL HISTORY: 67 years year old Female. ICD-10 CODE: N95.1 POST MENOPAUSAL Height: 62 Weight: 162.9 FRAX RISK QUESTIONS: Alcohol (3 or more units per day): no Family History (Parent hip fracture): no Glucocorticoids (More than 3mos): no (Ex: prednisone, prednisolone, methylprednisolone, dexamethasone, and hydrocortisone). History of Fracture in Adulthood: no Secondary Osteoporosis: 1. Type 1 Diabetes: no 2. Hyperthyroidism: no 3. Menopause before 45: no 4. Malnutrition: no 5. Chronic liver disease: no Rheumatoid Arthritis: no Current Tobacco Use: no RISK FACTORS HISTORY OF: Surgery to Spine/Hip(right/left)/Wrist (right/left): no Family History of Osteoporosis: no Active: yes Diet low in dairy products/other sources of calcium: no Postmenopausal woman: yes Lost more than 2 inches in height since high school: no MEDICATIONS: Additional History: EXAM MEASUREMENTS: Bone mineral densitometry was performed using the [employer] System. Bone mineral density as measured about the Lumbar spine is: ----- L1-L4(G/cm2): 0.849 T Score Values are as follows: ----- L1: -2.8 ----- L2: -3.9 ----- L3: -2.8 ----- L4: -1.9 ----- L1-L4: -2.8 Bone mineral density has: decreased -9.7 % since study of: 09.09.2017 Bone mineral density about the R hip (g/cm2): 0.938 Bone mineral density about the L hip (g/cm2): 0.925 T Score values are as follows: -----R Neck: -0.7 -----L Neck: -0.8 -----R Total: -1.1 -----L Total: -1.1 Bone mineral density has: decreased -5.2 % since study of: 09.09.2017 FRAX%s: The graph provided illustrates a 8.1% chance for a major osteoporotic fx and a 0.7% chance fo r the hips probability for fx in 10 years time. IMPRESSION: Osteoporosis (T Score less than -2.5). There is increased fracture risk and therapy is usually indicated based on age. Re-Screen 1-2 years. NOTE: T-SCORE=SD OF THE YOUNG ADULT MEAN.
--- NOTE | 2022-03-21 19:23 | MM ---
Reason for Exam: Screening (asymptomatic). Last mammogram was performed 1 year(s) and 1 month(s) ago. Patient History: Menarche at age 10. First Full-Term at age 29. Late child-bearing (after 30). Postmenopausal. Breast cancer, left, age 52. Previous chest radiation therapy at age 52. Previous chemotherapy at age 52. 2007, Lumpectomy on the Left side. 07/30/2007, Malignant Core Biopsy on the left side. 2007, Chemotherapy. 2007, Radiation Therapy on the left side. Prior Study Comparison: 11/02/2018 Bilateral Screening Mammogram, [facility]. 01/05/2020 Bilateral Diagnostic Mammogram, [facility]. 02/15/2021 Bilateral Diagnostic Mammogram, [facility]. Tissue Density: The breast tissue is heterogeneously dense. This may lower the sensitivity of mammography. Findings: Analyzed By CAD. Left breast scarring with biopsy clips. There is no suspicious group of microcalcifications or new suspicious mass in either breast. Overall Assessment: Benign, BI-RAD 2 Management: Screening Mammogram of both breasts in 1 year. A clinical breast exam by your physician is recommended on an annual basis and results should be correlated with mammographic findings. Electronically signed and approved by: Baljeet Saldana DO
== END | disposition home or self-care (01) ==
LOC: RADMAMWWP 14:41
PROVIDERS: ATTEND Internal Medicine Hematology & Oncology
DX: Z12.31 Encounter for screening mammogram for malignant neoplasm of breast (principal); M81.0 Age-related osteoporosis without current pathological fracture; Z78.0 Asymptomatic menopausal state; Z80.3 Family history of malignant neoplasm of breast
CPT/HCPCS: 77063; 77067; 77080

== ENCOUNTER → 2023-03-23 | Outpatient (CLI) | payer MEDICARE ==
--- NOTE | 2023-03-24 15:16 | MM ---
Reason for Exam: Screening (asymptomatic). Last screening mammogram was performed 12 month(s) ago. Patient History: Menarche at age 10. First Full-Term at age 29. Late child-bearing (after 30). Postmenopausal. Breast cancer, left, age 52. Previous chest radiation therapy at age 52. Previous chemotherapy at age 52. 2007, Lumpectomy on the Left side. 07/30/2007, Malignant Core Biopsy on the left side. 2007, Chemotherapy. 2007, Radiation Therapy on the left side. Prior Study Comparison: 01/05/2020 Bilateral Diagnostic Mammogram, [facility]. 02/15/2021 Bilateral Diagnostic Mammogram, [facility]. 03/20/2022 Bilateral MG 3D screening mammo w/cad, [facility]. Tissue Density: The breast tissue is heterogeneously dense. This may lower the sensitivity of mammography. Findings: Analyzed By CAD. Pattern appears stable. There is prior lumpectomy left breast which appears stable. There is asymmetry of the breast size with smaller left and right breast. Findings are stable over the interval. Benign calcifications are present bilaterally. No suspicious groups of microcalcifications, spiculated or lobular masses, architectural distortion or other secondary signs of malignancy are mammographically apparent. Overall Assessment: Benign, BI-RAD 2 Management: Screening Mammogram of both breasts in 1 year. A negative mammogram report should not preclude additional follow up of suspicious palpable abnormalities. Patient should continue monthly self breast exam. A clinical breast exam by your physician is recommended on an annual basis and results should be correlated with mammographic findings. Electronically signed and approved by: Levon Wu D.O. Radiologis
== END | disposition home or self-care (01) ==
LOC: RADMAMWWP 14:18
PROVIDERS: ATTEND Internal Medicine Hematology & Oncology
DX: Z12.31 Encounter for screening mammogram for malignant neoplasm of breast (principal); Z78.0 Asymptomatic menopausal state; Z85.3 Personal history of malignant neoplasm of breast; Z92.3 Personal history of irradiation
CPT/HCPCS: 77063; 77067

== ENCOUNTER → 2023-05-06 | Outpatient (CLI) | payer MEDICARE ==
--- NOTE | 2023-05-06 09:14 | US ---
EXAMINATION TYPE: US bladder DATE OF EXAM: 05/06/2023 COMPARISON: NONE CLINICAL INDICATION: Female, 68 years old with history of R39.14 FEELING OF INCOMPLETE BLADDER EMPTYI NG; incomplete emptying x 3-4 months TECHNIQUE: Multiple sonographic images of the bladder are obtained. FINDINGS: EXAM MEASUREMENTS: Post Void Residual Volume: 70 mL PETROLEUM ENGINEER NOTES: dilated bowel loops noted Color Doppler performed to assess ureteral jets. Bilateral Jets seen: Yes Normal Post Void Residual (less than 50ml): No The urinary bladder appears anechoic without wall thickening. IMPRESSION: Abnormal post void residual of 70 mL.
== END | disposition home or self-care (01) ==
LOC: RADUSWWP 08:04
PROVIDERS: ATTEND Family Medicine
DX: R39.14 Feeling of incomplete bladder emptying (principal); N39.43 Post-void dribbling
CPT/HCPCS: 76857

== ENCOUNTER → 2023-07-10 | Outpatient (CLI) | payer MEDICARE ==
[2023-07-10 16:47] LABS: T4, Free (Free Thyroxine) 1.25 ng/dL (0.80-1.80)
== END | disposition home or self-care (01) ==
LOC: LABWHC1 12:14
PROVIDERS: ATTEND Family Medicine
DX: E55.9 Vitamin D deficiency, unspecified (principal); L30.9 Dermatitis, unspecified
CPT/HCPCS: 36415; 82306; 84439; 84443; 84450; 84460; 84481

== ENCOUNTER → 2024-03-10 | Outpatient (CLI) | payer MEDICARE ==
[2024-03-10 17:30] LABS: ALT 28 U/L (8-44); AST 22 U/L (13-35); Chol/HDL Ratio 2.64 Ratio; LDL Cholesterol,Calculated 113.3 mg/dL (0.0-131.0)
== END | disposition home or self-care (01) ==
LOC: LABWHC1 09:57
PROVIDERS: ATTEND Family Medicine
DX: E78.00 Pure hypercholesterolemia, unspecified (principal)
CPT/HCPCS: 36415; 80061; 84450; 84460

== ENCOUNTER → 2024-05-24 | Outpatient (CLI) | payer MEDICARE ==
--- NOTE | 2024-05-24 11:43 | BD ---
EXAMINATION TYPE: Axial Bone Density DATE OF EXAM: 05/24/2024 CLINICAL HISTORY: 69 years old Female. ICD-10 CODE: Z12.31 SCR MAMMO C50.412 BR CAN HX M81.0 OSTEO , Additional History: Height: 5 ft 2 3/4 in Weight: 165 FRAX RISK QUESTIONS: Alcohol (3 or more units per day): no Family History (Parent hip fracture): no Glucocorticoids (More than 3mos): no (Ex: prednisone, prednisolone, methylprednisolone, dexamethasone, and hydrocortisone). History of Fracture in Adulthood: no Secondary Osteoporosis: 1. Type 1 Diabetes: no 2. Hyperthyroidism: no 3. Menopause before 45: no 4. Malnutrition: no 5. Chronic liver disease: no Rheumatoid Arthritis: no Current Tobacco Use: no RISK FACTORS HISTORY OF: Surgery to Spine/Hip(right/left)/Wrist (right/left): no MEDICATIONS: Thyroid Medications:none Osteoporosis Medications: none now EXAM MEASUREMENTS: Bone mineral densitometry was performed using the [employer] System. Bone mineral density as measured about the Lumbar spine is: ----- L1-L4(G/cm2): 0.844 T Score Values are as follows: ----- L1: -3.1 ----- L2: -4.0 ----- L3: -2.8 ----- L4: -1.7 ----- L1-L4: -2.8 Z Score Values are as follows: ----- L1: -1.7 ----- L2: -2.6 ----- L3: -1.4 ----- L4: -0.3 ----- L1-L4: -1.4 Bone mineral density has: decreased -0.6 % since study of: 2021 Bone mineral density about the R hip (g/cm2): 0.853 Bone mineral density about the L hip (g/cm2): 0.872 T Score values are as follows: -----R Neck: -1.3 -----L Neck: -1.2 -----R Total: -1.2 -----L Total: -1.3 Z Score values are as follows: -----R Neck: 0.2 -----L Neck: 0.3 -----R Total: 0.1 -----L Total: 0.0 Bone mineral density has: decreased -2.2 % since study of: 2021 FRAX%s: The graph provided illustrates a 9.6 % chance for a major osteoporotic fx and a 1.3 % chance for the hips probability for fx in 10 years time. IMPRESSION: Osteoporosis (T Score less than -2.5). There is increased fracture risk and therapy is usually indicated based on age. Re-Screen 1-2 years. NOTE: T-SCORE=SD OF THE YOUNG ADULT MEAN. [facility], , 05/24/2024 11:41 AM
--- NOTE | 2024-05-25 10:10 | MM ---
Reason for Exam: Screening (asymptomatic). Last mammogram was performed 1 year(s) and 2 month(s) ago. Patient History: Menarche at age 10. First Full-Term at age 29. Late child-bearing (after 30). Postmenopausal. Breast cancer, left, age 52. Previous chest radiation therapy at age 52. Previous chemotherapy at age 52. 2007, Lumpectomy on the Left side. 07/30/2007, Malignant Core Biopsy on the left side. 2007, Chemotherapy. 2007, Radiation Therapy on the left side. Prior Study Comparison: 02/15/2021 Bilateral Diagnostic Mammogram, [facility]. 03/20/2022 Bilateral MG 3D screening mammo w/cad, [facility]. 03/23/2023 Bilateral MG 3D screening mammo w/cad, [facility]. Tissue Density: The breasts are heterogeneously dense, which may obscure small masses. Findings: Analyzed By CAD. There is no suspicious group of microcalcifications or new suspicious mass in either breast. Stable postoperative distortion left breast. Overall Assessment: Benign, BI-RAD 2 Management: Screening Mammogram of both breasts in 1 year. . Patient should continue monthly self-breast exams. A clinical breast exam by your physician is recommended on an annual basis. This exam should not preclude additional follow-up of suspicious palpable abnormalities. Note on Lia scores and lifetime risk: 1. A Lia score greater than 3% is considered moderate risk. If this is the case, consider specialist referral to assess eligibility for a risk reducing agent. 2. If overall lifetime risk for the development of breast cancer is 20% or higher, the patient may qualify for future screening with alternating mammogram and breast MRI. [facility] [place], , 05/25/2024 10:07 AM. Electronically signed and approved by: Andrea Mccormick M.D. Radiologis
== END | disposition home or self-care (01) ==
LOC: RADMAMWWP 09:29
PROVIDERS: ATTEND Internal Medicine Hematology & Oncology
DX: Z12.31 Encounter for screening mammogram for malignant neoplasm of breast (principal); M81.8 Other osteoporosis without current pathological fracture; C50.412 Malignant neoplasm of upper-outer quadrant of left female breast; E78.5 Hyperlipidemia, unspecified; Z17.0 Estrogen receptor positive status [ER+]; Z78.0 Asymptomatic menopausal state; Z85.3 Personal history of malignant neoplasm of breast; R92.333 Mammographic heterogeneous density, bilateral breasts
CPT/HCPCS: 77063; 77067; 77080

== ENCOUNTER 2024-06-10 09:52 | Day surgery (SDC) | payer MEDICARE ==
[2024-06-08 11:13] VITALS: BMI 30.2
[~2024-06-10 09:52] MED LIST changes: -LIDOCAINE 1% (10MG/ML) FOR IV START INTRADERMA PRN; -LIDOCAINE 1% INJ 10MG/ML (20 ML MDV) ONE; -PROPOFOL 10 MG/ML 20 ML VIAL IV ONE
[2024-06-10] MEDS: IV FLUID CONTINUATION 1,000 ML IV ONE (12:00)
[2024-06-10 12:07] VITALS: RESP 16; TEMP 97.7
[2024-06-10] MEDS ORDERED: PROPOFOL 10 MG/ML 20 ML VIAL IV ONE (12:12)
--- NOTE | 2024-06-10 12:29 | P.PCN ---
Date of Procedure: 06/10/24 Procedure(s) Performed: BRIEF HISTORY: Patient is a 69-year-old pleasant white female scheduled for an elective colonoscopy as a part of a lesion by history of colon polyps. Last colonoscopy was 3 years ago and was noted to have a tubular adenoma. PROCEDURE PERFORMED: Colonoscopy with cold snare polypectomy. PREOPERATIVE DIAGNOSIS: History of colon polyps. IV sedation per Anesthesia. PROCEDURE: After informed consent was obtained, the patient, was brought into the endoscopy unit. IV sedation was administered by Anesthesia under continuous monitoring. Digital rectal examination was normal. Initially the Olympus CF-160 flexible video colonoscope was then inserted in the rectum, gradually advanced into the cecum without any difficulty. Careful examination was performed as the scope was gradually being withdrawn. Ileocecal valve and the appendiceal orifice were visualized and appeared normal. Prep was excellent. Mucosa of the cecum, ascending colon, transverse colon normal. The descending colon there was a 5 mm polyp that was removed by cold snare polypectomy. Rest of the, descending colon, sigmoid colon, and rectum appeared normal. Sigmoid diverticulosis. Retroflexion was performed in the rectum and no lesions were seen. The patient tolerated the procedure well. IMPRESSION: 5 mm descending colon polyp status post cold snare polypectomy Scattered sigmoid diverticulosis RECOMMENDATIONS: Findings of this examination were discussed with the patient as well as her family.. She was advised to follow-up with the biopsy results. If the biopsy reveals adenoma she can have repeat colonoscopy in 5 years.
[2024-06-10 12:52] VITALS: BP 128/78; PULSE 70
== END 2024-06-10 13:21 | disposition home or self-care (01) ==
LOC: ORWHC2ENDO 09:52
PROVIDERS: ATTEND Internal Medicine Gastroenterology
DX: Z12.11 Encounter for screening for malignant neoplasm of colon (principal); D12.4 Benign neoplasm of descending colon; K57.30 Diverticulosis of large intestine without perforation or abscess without bleeding; E78.5 Hyperlipidemia, unspecified; J44.9 Chronic obstructive pulmonary disease, unspecified; G47.33 Obstructive sleep apnea (adult) (pediatric); Z85.3 Personal history of malignant neoplasm of breast; Z79.899 Other long term (current) drug therapy; Z98.890 Other specified postprocedural states; Z86.0101 Personal history of adenomatous and serrated colon polyps; Z98.42 Cataract extraction status, left eye; Z98.41 Cataract extraction status, right eye
CPT/HCPCS: 88305; 45385; J2704